=== PATIENT | male | born 1955 | race Caucasian/White ===

== ENCOUNTER 2018-02-19 20:03 | Emergency (ER) | payer OTHER ==
[2018-02-19 20:14] VITALS: BP 125/66; PULSE 66; TEMP 97.5; BMI 23.9
--- NOTE | 2018-02-19 20:52 | PDOC ---
History of Present Illness - General Chief Complaint: Allergic Reaction Stated Complaint: Allergic Reaction Time Seen by Provider: 02/19/18 20:52 - History of Present Illness Initial Comments: 62yo with PMH of BPH presenting with allergic reaction. Patient saw his urologist, Dr. Spence, today and received cystoscopy. After instrumentation, he was placed on three days of Bactrim, the first dose of which he took this evening around 6:30. Around 7pm, the patient started feeling itching on the palms of his hands, his lower legs, and feet. No difficulty breathing or trouble swallowing. Has never had a reaction like this before. Denies fever, chills, chest pain, or shortness of breath. Past History - Past Medical History Allergies/Adverse Reactions: Allergies Allergy/AdvReac Type Severity Reaction Status Date / Time No Known Allergies Allergy Verified 02/19/18 20:10 Home Medications: Ambulatory Orders Ciprofloxacin HCl [Cipro] 500 mg PO BID #6 tablet 02/19/18 COPD: No Disorders: Yes (BPH) - Suicide/Smoking/Psychosocial Hx Smoking History: Current every day smoker Have you smoked in the past 12 months: Yes Number of Cigarettes Smoked Daily: 5 Information on smoking cessation initiated: No Hx Alcohol Use: No Drug/Substance Use Hx: No Substance Use Type: None Review of Systems - Review of Systems Comments:: Constitutional: no fever, no chills HEENT: no throat pain, no dysphagia Cardiovascular: no chest pain, no palpitations Respiratory: no cough, no shortness of breath Gastrointestinal: no abdominal pain, no nausea, no vomiting Genitourinary: no dysuria, no frequency Musculoskeletal: no myalgia, no arthralgia Skin: +rash, +itching Neurologic: no headache, no dizziness *Physical Exam - Vital Signs Last Vital Signs Temp Pulse Resp BP Pulse Ox 97.5 F L 66 18 125/66 100 02/19/18 20:11 02/19/18 20:11 02/19/18 20:11 02/19/18 20:11 02/19/18 20:11 - Physical Exam Comments: General: Awake, alert, and fully oriented, in no acute distress Head: no signs of trauma Eyes: EOMI, sclera anicteric ENT: Moist mucus membranes, Neck: Normal ROM, supple Lungs: Lungs clear, Normal breath sounds Cardio: Regular rhythm, S1 and S2 present Abdomen: Soft, nontender. No guarding, no rebound, no masses Extremities: Normal range of motion, Distal pulses present SKIN: Bilateral erythema and urticaria on palmar aspect of hands and lower legs with mild excoriations from scratching Neurologic: Cranial nerves II through XII grossly intact. Normal speech Medical Decision Making - Medical Decision Making 62yo with PMH of BPH presenting with allergic reaction. -Benadryl 25 -Will reassess -Will send second line antibiotic to pharmacy, per Dr. Spence's preference 02/19/18 21:39 Was not able to contact Dr. Spence. Patient reports feeling better. Will send cipro to his pharmacy Instructed him to contact Dr. Spence in the morning regarding this change to antibiotic. 02/19/18 21:[address] Spence on the phone who agreed with cipro prescription and will contact patient tomorrow. 02/20/18 00:02 *DC/Admit/Observation/Transfer Diagnosis at time of Disposition: Allergic reaction Qualifiers: Encounter type: initial encounter Qualified Code(s): T78.40XA - Allergy, unspecified, initial encounter - Discharge Dispostion Disposition: HOME Condition at time of disposition: Improved - Prescriptions Prescriptions: Ciprofloxacin HCl [Cipro] 500 mg PO BID #6 tablet - Referrals Referrals: Fco Stanley MD [Primary Care Provider] - - Patient Instructions Printed Discharge Instructions: DI for Adverse Drug Reaction -- Allergic Additional Instructions: You came into the ED for an adverse medication reaction. Avoid taking this medicine (Bactrim or Trimethoprim-Sulfamethoxazole. A different medication has been sent to your pharmacy. Call your urologist, Dr. Spence, in the morning regarding this change. Call for emergency medical services or go to the emergency room right away for: trouble breathing, throat swelling, rapid irregular heartbeat or chest pain, fainting, confusion, skin blisters, or any new or concerning symptoms. If you think you have an emergency, call for emergency medical services right away. - Post Discharge Activity
[2018-02-19] MEDS ORDERED: diphenhydrAMINE HCL 50 MG CAPSULE PO ONE (21:23)
--- NOTE | 2018-02-19 21:32 | PDOC ---
Attending Attestation - Resident Resident Name: Renita Cerna - ED Attending Attestation I have performed the following: I have examined & evaluated the patient, The case was reviewed & discussed with the resident, I agree w/resident's findings & plan, Exceptions are as noted - HPI HPI: 02/19/18 21:31 62-year-old male took one Bactrim today following a cystoscopy. The medication was started empirically by his urologist Dr. Tanmay Spence Presents with itching to his extremities. He has no complaints of shortness of breath or difficulty swallowing. - Physicial Exam PE: 02/19/18 21:32 Slender 62-year-old male in no acute distress. Head normocephalic/atraumatic. Neck is supple, no bruits. Lungs there is no wheezing. Oropharynx does not show any exudates, uvula is midline and there is no edema. Abdomen flat, nontender, and Extremities there are some scattered hives to the palms of his hands and his forearms and also his knees skin warm and dry psych appropriate neuro axox3,ambulatory 02/19/18 21:34 - Medical Decision Making 02/19/18 21:35 imp drug allergy plan change antibiotics and contact pt's urologist
[2018-02-19] MEDS ORDERED: diphenhydrAMINE HCL 25 MG CAPSULE (FP) PO ONE (21:51)
== END 2018-02-19 22:12 | disposition home or self-care (01) ==
LOC: JER 20:03
DX: L50.0 Allergic urticaria (principal); T37.0X5A Adverse effect of sulfonamides, initial encounter; Y92.038 Other place in apartment as the place of occurrence of the external cause
CPT/HCPCS: 99282-25

== ENCOUNTER 2020-04-30 12:22 | Emergency (ER) | payer OTHER ==
[2020-04-30 12:33] VITALS: TEMP 97.9; BMI 21.2
[2020-04-30 13:48] LABS: BASO % 0.8 % (0-2.0); EOS % 1.8 % (0-4.5); HEMATOCRIT 39.8 % (35.4-49); HEMOGLOBIN 12.8 GM/dL (11.7-16.9); LYMPH % 24.2 % (8-40); MCH 30.1 pg (25.7-33.7); MCHC 32.2 g/dl (32.0-35.9); MEAN CELL VOLUME 93.3 fl (80-96); MEAN PLT VOLUME 7.9 fl (7.5-11.1); NEUT % 66.2 % (42.8-82.8); PLATELET COUNT 351 K/MM3 (134-434); RBC 4.26 M/mm3 (4.00-5.60); RDW 13.8 % (11.9-15.9); WHITE BLOOD COUNT 9.1 K/mm3 (4.0-10.0)
[2020-04-30 14:03] LABS: CHLORIDE 107 mmol/L (98-107); SODIUM 139 mmol/L (136-145)
[2020-04-30 14:05] LABS: ALBUMIN 3.4 g/dl (3.4-5.0); ANION GAP 5 MMOL/L (8-16); CALCIUM 8.5 mg/dL (8.5-10.1); CO2 28 mmol/L (21-32)
[2020-04-30 14:06] LABS: GLUCOSE,RANDOM 94 mg/dL (74-106)
[2020-04-30 14:08] LABS: SGPT/ALT 32 U/L (13-61)
[2020-04-30 14:09] LABS: CREATININE 0.8 mg/dL (0.55-1.3); SGOT/AST 16 U/L (15-37)
[2020-04-30 14:10] LABS: BILIRUBIN,TOTAL 0.3 mg/dL (0.2-1); TOT PROT 7.4 g/dl (6.4-8.2)
[2020-04-30 14:11] LABS: ALK PHOS 165 U/L (45-117)
[2020-04-30 14:32] VITALS: BP 118/68; PULSE 82
== END 2020-04-30 14:32 | disposition home or self-care (01) ==
LOC: JERFT 12:22 → SUPCPDRO 12:22 → JERFT 14:32
DX: R07.9 Chest pain, unspecified (principal)
CPT/HCPCS: 36415; 71046-TC-FY; 80053; 82550; 84484; 85025; 93005; 93010; 99285-25